=== PATIENT | male | born 1990 | race Caucasian/White ===

== ENCOUNTER 2020-06-17 13:47 | Observation (INO) ==
[2020-06-17] MEDS ORDERED: CeFAZolin Syr 3,000MG/30 ML 3,000 MG/30 ML SYRINGE IVPB ONE (14:30)
[2020-06-17] MEDS ORDERED: Ringers Solution, Lactated 1,000 ML IVC SCH ×2 (14:30→14:45)
[2020-06-17] MEDS ORDERED: Famotidine 20 MG/2 ML VIAL IVP ONE (14:31)
[2020-06-17] MEDS ORDERED: Acetaminophen IV 1,000 MG/100 ML BAG IVPB ONE (14:32)
[2020-06-17] MEDS ORDERED: *HR* FentaNYL (PF) 100 MCG/2 ML VIAL ONE (15:38)
[2020-06-17] MEDS ORDERED: *HR* Propofol 200 MG/20 ML VIAL IVP ONE (15:38)
[2020-06-17] MEDS ORDERED: *HR* Midazolam HCl 2 MG/2 ML VIAL ONE (15:38)
[2020-06-17] MEDS ORDERED: Lidocaine -MPF 2% 2 ML VIAL ONE (15:39)
[2020-06-17] MEDS ORDERED: Ondansetron 4 MG/2 ML VIAL ONE (15:39)
[2020-06-17] MEDS ORDERED: Dexamethasone 4 MG/ML VIAL ONE (15:39)
[2020-06-17] MEDS ORDERED: Ethanol\\Acetic Acid\\Na Ace\\Ben 1,000 ML IRRIG.SOLN IR ONE (15:40)
[2020-06-17] MEDS ORDERED: *HR* HYDROMORPHONE 2 MG/ML VIAL ONE (16:16)
[2020-06-17] MEDS ORDERED: Ondansetron 4 MG/2 ML VIAL IVP PRN (19:57)
[2020-06-17] MEDS ORDERED: *HR* Promethazine 25 MG/ML VIAL IVP PRN (19:57)
[2020-06-17] MEDS ORDERED: HYDROcodone BIT/Homatropine 5 MG TABLET PO PRN (19:57)
[2020-06-17] MEDS ORDERED: MOM Conc 10 ML UD.LIQ PO PRN (19:57)
[2020-06-17] MEDS ORDERED: Sennosides 8.6 MG TABLET PO PRN (19:57)
[2020-06-17] MEDS ORDERED: Naloxone 0.4 MG/ML INJ IVP PRN (19:57)
[2020-06-17] MEDS: Ringers Solution, Lactated 1,000 ML IVC SCH (20:34)
[2020-06-17] MEDS: ceFAZolin 3,000 MG in 0.9 % Sodium Chloride 100 ML IVPB SCH (23:19)
[2020-06-18 05:17] LABS: Basophils % 0.2 %; Eosinophils % 0.1 %; Hematocrit 38.6 % (37.5-50.1); Immature Granulocytes % 0.5 % (0-4); Lymphocytes # 1.2 K/mcL (0.6-4.6); Lymphocytes % 9.4 %; Mean Corpuscular HGB Conc 33.7 g/dL (31.6-35.5); Mean Corpuscular Volume 89.1 fL (83.0-100.0); Mean Platelet Volume 10.4 fL (9.4-12.4); Monocytes # 0.7 K/mcL (0.0-1.3); Monocytes % 5.2 %; Platelet Count 327 K/mcL (140-400); Red Blood Count 4.33 M/mcL (4.19-5.50); Red Cell Distribution Width 13.2 % (11.5-14.5); Segmented Neutrophils % 84.6 %
[2020-06-18 05:34] LABS: BUN/Creatinine Ratio 20 (6-26); Blood Urea Nitrogen 18 mg/dL (6-20); Calcium 8.9 mg/dL (8.6-10.3); Carbon Dioxide 24 mEq/L (23-29); Chloride 103 mEq/L (98-107); Glucose 219 mg/dL (70-105); Osmolality,Calculated 295 (280-300); Potassium 4.1 mEq/L (3.5-5.1); Sodium 138 mEq/L (136-145); eGFR For African Americans > 60 (> 60); eGFR For Non-African Americans > 60 (> 60)
[2020-06-18] MEDS: ceFAZolin 3,000 MG in 0.9 % Sodium Chloride 100 ML IVPB SCH (07:45)
[2020-06-18] MEDS ORDERED: Ascorbic Acid 500 MG TABLET PO SCH (08:00)
[2020-06-18] MEDS ORDERED: Multivit/Ca/Min/Fe/FA 1 TAB TABLET PO SCH (09:00)
[2020-06-18] MEDS ORDERED: Celecoxib 200 MG CAPSULE PO SCH (09:00)
[2020-06-18] MEDS: Ringers Solution, Lactated 1,000 ML IVC SCH (09:41)
[2020-06-18 10:43] VITALS: BP 136/76
== END 2020-06-18 11:36 | disposition home or self-care (01) ==
LOC: SAMDAY 13:47 → 3NENU 13:47
PROVIDERS: ADMIT Orthopaedic Surgery; ATTEND Orthopaedic Surgery